=== PATIENT | female | born 1980 | race Hispanic/Latino ===

== ENCOUNTER → 2022-06-25 | Outpatient (CLI) | payer SELFPAY ==
[2022-06-25 10:25] LABS: HEMATOCRIT 38.3 % (36-48); PLATELET COUNT (AUTO) 426 K/uL (130-400); PLATELET FUNCTION ANALYSIS EPI 115 SEC (55-192)
[2022-06-25 10:26] LABS: PLATELET FUNCTION ANALYSIS ADP 95 SEC (62-100)
== END | disposition home or self-care (01) ==
LOC: LAB 08:46
PROVIDERS: ATTEND Internal Medicine Medical Oncology
DX: C73 Malignant neoplasm of thyroid gland (principal)
CPT/HCPCS: 36415; 85576

== ENCOUNTER 2023-05-15 23:48 | Emergency (ER) | payer OTHER, SELFPAY ==
[~2023-05-15] VITALS: Ht 162.6 cm; Wt 77.1 kg
[2023-05-16 00:34] LABS: CREATININE 0.9 mg/dL (0.5-1.5); POTASSIUM 3.6 mmol/L (3.5-5.1)
[2023-05-16] MEDS: MAG/ALUM/SIMETH 30 ML UDCUP PO ONE (00:34)
[2023-05-16] MEDS: LIDOCAINE HCL 2% VISCOUS 15 ML UDCUP PO ONE (00:34)
[2023-05-16 00:40] LABS: APPEARANCE,URINE TURBID (CLEAR); BILIRUBIN,URINE NEGATIVE (NEGATIVE); COLOR,URINE RED (YELLOW); GLUCOSE, URINE (UA) 100 mg/dL (NEGATIVE); KETONES,URINE 15 mg/dL (NEGATIVE); LEUKOCYTE ESTERASE ,URINE MODERATE Leu/uL (NEGATIVE); NITRATE,URINE POSITIVE (NEGATIVE); OCCULT BLOOD,URINE LARGE (NEGATIVE); PH,URINE 6.5 (5.0-8.0); PROTEIN,URINE >=300 mg/dL (NEGATIVE)
[2023-05-16 00:44] LABS: ADD UA MICROSCOPIC YES; HCG,QUALITATIVE URINE NEGATIVE (NEGATIVE)
[2023-05-16 00:47] LABS: ALBUMIN 3.7 g/dL (3.5-5.0); BILIRUBIN,TOTAL 0.3 mg/dL (0.2-1.0); THYROID STIMULATING HORMONE 3.11 uIU/mL (0.36-3.74); TOTAL PROTEIN, SERUM 7.8 g/dL (6.0-8.3)
[2023-05-16 00:47] LABS: BACTERIA,URINE None Seen /HPF (None Seen); RBC,URINE TNTC /HPF (0-1); SQUAMOUS EPITHELIAL CELL,UR Rare /HPF (0-2); WBC,URINE 26-50 /HPF (0-1)
[2023-05-16 00:57] LABS: BASOPHILS # (AUTO) 0.07 K/uL (0.00-0.20); BASOPHILS % (AUTO) 0.6 % (0.0-5.0); EOSINOPHILS # (AUTO) 0.08 K/uL (0.00-0.70); EOSINOPHILS % (AUTO) 0.6 % (0.0-8.0); HEMATOCRIT 33.2 % (36-48); IMMATURE GRANULOCYTE ABSOLUTE 0.03 K/uL (0-1); LYMPHOCYTES # (AUTO) 2.2 K/uL (1.0-4.8); LYMPHOCYTES % (AUTO) 17.6 % (21.0-51.0); MEAN CORPUSCULAR HEMOGLOBIN 23.7 pg (27.0-33.0); MEAN CORPUSCULAR HGB CONC 32.2 g/dL (32.0-36.0); MEAN CORPUSCULAR VOLUME 73.5 fL (79-99); MONOCYTES # (AUTO) 0.7 K/uL (0.1-1.0); MONOCYTES % (AUTO) 5.6 % (3.0-13.0); NEUTROPHILS # (AUTO) 9.4 K/uL (1.8-7.7); NEUTROPHILS % (AUTO) 75.4 % (40.0-77.0); PLATELET COUNT (AUTO) 330 K/uL (130-400); RED BLOOD CELL COUNT(AUTO) 4.52 MIL/uL (4.00-5.50); RED CELL DISTRIBUTION WIDTH 17.2 % (11.0-15.5); WHITE BLOOD COUNT (AUTO) 12.5 K/uL (4.8-10.8)
[2023-05-16 01:57] VITALS: BP 127/84; PULSE 77; RESP 16; O2SAT 99
[2023-05-16] MEDS ORDERED: OMEP40CA21 PO (02:03)
[2023-05-16] MEDS ORDERED: MAG-55 PO (02:03)
== END 2023-05-16 02:28 | disposition home or self-care (01) ==
LOC: EDH 23:48
DX: K29.70 Gastritis, unspecified, without bleeding (principal); R07.89 Other chest pain; K20.90 Esophagitis, unspecified without bleeding; I10 Essential (primary) hypertension; Z79.899 Other long term (current) drug therapy; Z98.890 Other specified postprocedural states; Z85.850 Personal history of malignant neoplasm of thyroid; Z90.49 Acquired absence of other specified parts of digestive tract
CPT/HCPCS: 36415; 71045; 80053; 81001; 81025; 84443; 84484; 85025; 87088; 93005

== ENCOUNTER 2023-05-22 14:58 | Emergency (ER) | payer OTHER ==
[~2023-05-22] VITALS: Ht 162.6 cm; Wt 77.1 kg
[~2023-05-22 14:58] MED LIST: MAG-55 PO; OMEP40CA21 PO
[2023-05-22 15:28] LABS: BASOPHILS # (AUTO) 0.09 K/uL (0.00-0.20); BASOPHILS % (AUTO) 0.7 % (0.0-5.0); EOSINOPHILS # (AUTO) 0.09 K/uL (0.00-0.70); EOSINOPHILS % (AUTO) 0.7 % (0.0-8.0); HEMATOCRIT 33.6 % (36-48); IMMATURE GRANULOCYTE ABSOLUTE 0.06 K/uL (0-1); LYMPHOCYTES # (AUTO) 2.3 K/uL (1.0-4.8); LYMPHOCYTES % (AUTO) 18.9 % (21.0-51.0); MEAN CORPUSCULAR HEMOGLOBIN 23.9 pg (27.0-33.0); MEAN CORPUSCULAR HGB CONC 31.3 g/dL (32.0-36.0); MEAN CORPUSCULAR VOLUME 76.4 fL (79-99); MONOCYTES # (AUTO) 0.7 K/uL (0.1-1.0); MONOCYTES % (AUTO) 5.8 % (3.0-13.0); NEUTROPHILS # (AUTO) 8.9 K/uL (1.8-7.7); NEUTROPHILS % (AUTO) 73.4 % (40.0-77.0); PLATELET COUNT (AUTO) 416 K/uL (130-400); RED CELL DISTRIBUTION WIDTH 17.2 % (11.0-15.5); WHITE BLOOD COUNT (AUTO) 12.2 K/uL (4.8-10.8)
[2023-05-22 15:50] LABS: CREATININE 0.8 mg/dL (0.5-1.5); POTASSIUM 3.5 mmol/L (3.5-5.1)
[2023-05-22 15:54] LABS: ALBUMIN 3.3 g/dL (3.5-5.0); BILIRUBIN,TOTAL 0.2 mg/dL (0.2-1.0); MAGNESIUM 1.8 mg/dL (1.80-2.40); TOTAL PROTEIN, SERUM 6.9 g/dL (6.0-8.3)
[2023-05-22 16:32] LABS: APPEARANCE,URINE CLEAR (CLEAR); BILIRUBIN,URINE NEGATIVE (NEGATIVE); GLUCOSE, URINE (UA) NEGATIVE (NEGATIVE); KETONES,URINE NEGATIVE (NEGATIVE); LEUKOCYTE ESTERASE ,URINE NEGATIVE Leu/uL (NEGATIVE); NITRATE,URINE NEGATIVE (NEGATIVE); OCCULT BLOOD,URINE NEGATIVE (NEGATIVE); PH,URINE 6.5 (5.0-8.0); PROTEIN,URINE NEGATIVE (NEGATIVE); UROBILINOGEN,URINE 0.2 mg/dL (0.2-1.0)
[2023-05-22 16:33] LABS: ADD UA MICROSCOPIC NO; COLOR,URINE LIGHT-YELLOW (YELLOW)
[2023-05-22] MEDS: METOPROLOL TARTRATE 1 MG/ML 5ML VIAL IV ONE (16:41)
[2023-05-22] MEDS: 0.9%NACL 50ML IV SCH (16:42)
[2023-05-22] MEDS: CALCIUM GLUC 1GM/10ML VIAL IVPB SCH (16:42)
[2023-05-22 17:39] VITALS: BP 117/76; PULSE 82; RESP 18; O2SAT 99
[2023-05-22] MEDS ORDERED: CALC200T16 PO (17:58)
[2023-05-22] MEDS ORDERED: BUTA-271 PO (18:06)
== END 2023-05-22 18:17 | disposition home or self-care (01) ==
LOC: EDH 14:58
DX: E83.51 Hypocalcemia (principal); R00.0 Tachycardia, unspecified; G44.209 Tension-type headache, unspecified, not intractable; I10 Essential (primary) hypertension; Z85.850 Personal history of malignant neoplasm of thyroid; Z79.899 Other long term (current) drug therapy; Z98.890 Other specified postprocedural states; Z90.49 Acquired absence of other specified parts of digestive tract
CPT/HCPCS: 99285; 83735; 84484 ×2; 80053; 85025; 81003; 36415; 71045; 96365; 93005; J0610; 96366; J3490